=== PATIENT | male | born 1965 | race Caucasian/White ===

== ENCOUNTER 2016-12-27 06:01 | Day surgery (SDC) | payer BC ==
--- NOTE | ~2016-12-27 | EGD ---
EGD REPORT [facility] [address] [address] NAME: ROBIN DAVILA : [birth year] STATUS : REG [facility]#: [id number] AGE: 51 ADM/REG DATE : 12/27/16 MR#: [id number] REPORT SERV DATE: 12/27/16 DICTATED BY: GALDINO LAWRENCE DATE: 12/27/16 REPORT STATUS : Draft TRANSCRIBED BY: [employer] DATE: 12/27/16 [facility] Patient Name: Robin Davila Date of : 1965 Attending MD: GALDINO LAWRENCE MD Procedure Date No Time: 12/27/2016 Procedure: Colonoscopy Indications: Screening in patient at increased risk: Family history of 1st-degree relative with colorectal cancer Referring MD: MACY AYOUB MD Medicines: as per anesthesia Complications: No immediate complications. Procedure: Pre-Anesthesia Assessment: - ASA Grade Assessment: III - A patient with severe systemic disease. After I obtained informed consent, the scope was passed under direct vision. Throughout the procedure, the patient's blood pressure, pulse, and oxygen saturations were monitored continuously. The PCF [id number] was introduced through the anus and advanced to the cecum, identified by appendiceal orifice and ileocecal valve. The colonoscopy was performed without difficulty. The patient tolerated the procedure. The quality of the bowel preparation was adequate to identify polyps. Findings: The perianal and digital rectal examinations were normal. A sessile polyp was found in the transverse colon. The polyp was 7 mm in size. The polyp was removed with a jumbo cold forceps. Resection and retrieval were complete. A few medium-mouthed diverticula were found in the sigmoid colon. Impression: - One 7 mm polyp in the transverse colon. Resected and retrieved. - Diverticulosis in the sigmoid colon. Recommendation: - Await pathology results. - Repeat colonoscopy for surveillance based on pathology results. Procedure Code(s): --- Professional --- 45612, Colonoscopy, flexible, proximal to splenic flexure; with biopsy, single or multiple Diagnosis Code(s): --- Professional --- EGD REPORT [facility] [address] [facility] [place] [address] NAME: ROBIN DAVILA : [birth year] STATUS : REG [facility]#: [id number] AGE: 51 ADM/REG DATE : 12/27/16 MR#: [id number] REPORT SERV DATE: 12/27/16 DICTATED BY: GALDINO LAWRENCE DATE: 12/27/16 REPORT STATUS : Draft TRANSCRIBED BY: [employer] DATE: 12/27/16 D12.3, Benign neoplasm of transverse colon K57.30, Diverticulosis of large intestine without perforation or abscess without bleeding Z12.11, Encounter for screening for malignant neoplasm of colon Z80.0, Family history of malignant neoplasm of digestive organs CPT copyright 2013 [employer] [place] [employer]. All rights reserved. The codes documented in this report are preliminary and upon underwriting analyst review may be revised to meet current compliance requirements. GALDINO LAWRENCE MD 12/27/2016 8:20 AM This report has been signed electronically. Number of Addenda: 0 Note Initiated On: 12/27/2016 7:29 AM Scope Withdrawal Time 0 hours 6 minutes 57 seconds [address] [facility] [place] [address]
--- NOTE | ~2016-12-27 | EGD ---
EGD REPORT [facility] [address] [address] NAME: ROBIN DAVILA : [birth year] STATUS : REG [facility]#: [id number] AGE: 51 ADM/REG DATE : 12/27/16 MR#: [id number] REPORT SERV DATE: 12/27/16 DICTATED BY: GALDINO LAWRENCE DATE: 12/27/16 REPORT STATUS : Draft TRANSCRIBED BY: [employer] DATE: 12/27/16 [facility] Patient Name: Robin Davila Date of : 1965 Attending MD: GALDINO LAWRENCE MD Procedure Date No Time: 12/27/2016 Procedure: Upper GI endoscopy Indications: Dysphagia Referring MD: MACY AYOUB MD Medicines: as per anesthesia Complications: No immediate complications. Procedure: Pre-Anesthesia Assessment: - ASA Grade Assessment: III - A patient with severe systemic disease. After obtaining informed consent, the endoscope was passed under direct vision. Throughout the procedure, the patient's blood pressure, pulse, and oxygen saturations were monitored continuously. The GIF H190 [id number] was introduced through the mouth, and advanced to the third part of duodenum. The upper GI endoscopy was accomplished without difficulty. The patient tolerated the procedure. Findings: Non-severe esophagitis was found in the lower third of the esophagus. A mild Schatzki ring (acquired) was found at the gastroesophageal junction. The scope was withdrawn. Dilation was performed with a Ribera dilator with no resistance at 46 Fr. Localized mild inflammation characterized by erythema was found in the gastric antrum. Biopsies were taken with a cold forceps for histology. The cardia and gastric fundus were normal on retroflexion. Patchy mild inflammation characterized by erythema was found in the duodenal bulb. Impression: - Non-severe esophagitis. - Mild Schatzki ring. Dilated. - Gastritis. Biopsied. - Duodenitis. Recommendation: - Await pathology results. Procedure Code(s): --- Professional --- 77211, Esophagogastroduodenoscopy, flexible, transoral; with biopsy, single or multiple 50703, Dilation of esophagus, by unguided sound or EGD REPORT [address] [address] NAME: ROBIN DAVILA : [birth year] STATUS : REG [facility]#: [id number] AGE: 51 ADM/REG DATE : 12/27/16 MR#: [id number] REPORT SERV DATE: 12/27/16 DICTATED BY: GALDINO LAWRENCE. DATE: 12/27/16 REPORT STATUS : Draft TRANSCRIBED BY: [employer] DATE: 12/27/16 bougie, single or multiple passes Diagnosis Code(s): --- Professional --- K20.9, Esophagitis, unspecified K22.2, Esophageal obstruction K29.70, Gastritis, unspecified, without bleeding K29.80, Duodenitis without bleeding R13.10, Dysphagia, unspecified CPT copyright 2013 [employer]. All rights reserved. The codes documented in this report are preliminary and upon medical biller coder review may be revised to meet current compliance requirements. GALDINO LAWRENCE MD 12/27/2016 7:50 AM This report has been signed electronically. Number of Addenda: 0 Note Initiated On: 12/27/2016 7:32 AM Scope Withdrawal Time 0 hours 0 minutes [address] [place] [id number]
--- NOTE | ~2016-12-27 | EGD ---
EGD REPORT [facility] [address] [address] NAME: ROBIN DAVILA : [birth year] STATUS : REG [facility]#: [id number] AGE: 51 ADM/REG DATE : 12/27/16 MR#: [id number] REPORT SERV DATE: 12/29/16 DICTATED BY: GALDINO LAWRENCE DATE: 12/29/16 REPORT STATUS : Draft TRANSCRIBED BY: [employer] DATE: 12/29/16 [facility] Patient Name: Robin Davila Date of : 1965 Attending MD: GALDINO LAWRENCE MD Procedure Date No Time: 12/27/2016 Procedure: Upper GI endoscopy Indications: Dysphagia Referring MD: MACY AYOUB MD Medicines: as per anesthesia Complications: No immediate complications. Procedure: Pre-Anesthesia Assessment: - ASA Grade Assessment: III - A patient with severe systemic disease. After obtaining informed consent, the endoscope was passed under direct vision. Throughout the procedure, the patient's blood pressure, pulse, and oxygen saturations were monitored continuously. The GIF H190 [id number] was introduced through the mouth, and advanced to the third part of duodenum. The upper GI endoscopy was accomplished without difficulty. The patient tolerated the procedure. Findings: Non-severe esophagitis was found in the lower third of the esophagus. A mild Schatzki ring (acquired) was found at the gastroesophageal junction. The scope was withdrawn. Dilation was performed with a Ribera dilator with no resistance at 46 Fr. Localized mild inflammation characterized by erythema was found in the gastric antrum. Biopsies were taken with a cold forceps for histology. The cardia and gastric fundus were normal on retroflexion. Patchy mild inflammation characterized by erythema was found in the duodenal bulb. Impression: - Non-severe esophagitis. - Mild Schatzki ring. Dilated. - Gastritis. Biopsied. - Duodenitis. Recommendation: - Await pathology results. Procedure Code(s): --- Professional --- 98353, Esophagogastroduodenoscopy, flexible, transoral; with biopsy, single or multiple 57371, Dilation of esophagus, by unguided sound or EGD REPORT [address] [address] NAME: ROBIN DAVILA : [birth year] STATUS : REG [facility]#: [id number] AGE: 51 ADM/REG DATE : 12/27/16 MR#: [id number] REPORT SERV DATE: 12/29/16 DICTATED BY: GALDINO LAWRENCE. DATE: 12/29/16 REPORT STATUS : Draft TRANSCRIBED BY: [employer] DATE: 12/29/16 bougie, single or multiple passes Diagnosis Code(s): --- Professional --- K20.9, Esophagitis, unspecified K22.2, Esophageal obstruction K29.70, Gastritis, unspecified, without bleeding K29.80, Duodenitis without bleeding R13.10, Dysphagia, unspecified CPT copyright 2013 [employer]. All rights reserved. The codes documented in this report are preliminary and upon clinical coder review may be revised to meet current compliance requirements. GALDINO LAWRENCE MD 12/27/2016 7:50 AM This report has been signed electronically. Number of Addenda: 0 Note Initiated On: 12/27/2016 7:32 AM Scope Withdrawal Time 0 hours 0 minutes 0 seconds [address] [place] [address]
[~2016-12-27 06:01] MED LIST: ASAB PO; MCZ25 PO; PRIN10 PO; VITC500 PO
== END 2016-12-27 23:59 | disposition home or self-care (01) ==
LOC: DMU 06:01
PROVIDERS: Internal Medicine Gastroenterology
PROC: 0DBL8ZX Excision of Transverse Colon, Via Natural or Artificial Opening Endoscopic, Diagnostic (ICD-10-PCS; 2016-12-27)
PROC: 0D757ZZ Dilation of Esophagus, Via Natural or Artificial Opening (ICD-10-PCS; principal; 2016-12-27 07:30)
PROC: 0DB68ZX Excision of Stomach, Via Natural or Artificial Opening Endoscopic, Diagnostic (ICD-10-PCS; 2016-12-27 07:30)
DX: Z12.11 Encounter for screening for malignant neoplasm of colon (principal); D12.3 Benign neoplasm of transverse colon; K57.30 Diverticulosis of large intestine without perforation or abscess without bleeding; K29.50 Unspecified chronic gastritis without bleeding; K20.9 Esophagitis, unspecified; K22.2 Esophageal obstruction; K29.70 Gastritis, unspecified, without bleeding; K29.80 Duodenitis without bleeding; I10 Essential (primary) hypertension; M19.90 Unspecified osteoarthritis, unspecified site; G47.33 Obstructive sleep apnea (adult) (pediatric); Z80.0 Family history of malignant neoplasm of digestive organs; Z87.442 Personal history of urinary calculi
CPT/HCPCS: 88305